=== PATIENT | male | born 1955 | race Caucasian/White ===

== ENCOUNTER → 2018-04-13 17:01 | Outpatient (CLI) | payer OTHER, SELFPAY ==
--- NOTE | 2018-04-13 17:30 | MRI_ITS ---
STUDY: MRI LUMBAR SPINE WITH AND WITHOUT CONTRAST REASON FOR EXAM: Male, 62 years old. Low back pain and left leg numbness TECHNIQUE: Standardized fat and water weighted pulse sequences were obtained in the sagittal and axial planes. 20 ml of Dotarem contrast material was administered for the contrast portion of the examination. COMPARISON: None FINDINGS: T12-L1: Normal endplates. Normal disc height, hydration and morphology. Normal bilateral facet joints. Normal central canal and bilateral lateral recesses. Normal bilateral intervertebral neural foramina. Normal lumbar lordosis. There is no substantial scoliosis. Normal conus medullaris that terminates at T12-L1 L1-2: Normal endplates. Normal disc height, hydration and morphology. Normal bilateral facet joints. Normal central canal and bilateral lateral recesses. Normal bilateral intervertebral neural foramina. L2-3: Grade 1 spondylolisthesis Normal endplates. Normal disc height, desiccation and minor bulging disc osteophyte complex with moderate size left posterolateral disc extrusion with superior migration of disc fragment.. Bilateral facet arthropathy and thickening of ligamenta flava. Mild narrowing of the central canal. Moderate right lateral recess and neural foraminal stenosis with more severe narrowing on the left L3-4: Degenerative endplate changes. Narrowed disc space with desiccation of the disc and minor bulging disc osteophyte complex with tiny central disc protrusion. Bilateral facet arthropathy.. Mild narrowing of the central canal. Moderate to severe bilateral recess and neural foraminal stenosis exaggerated by shortened pedicles L4-5: Narrowed disc space and minor osteophytic ridging.. Bilateral facet arthropathy.. Normal central canal . Moderate to severe bilateral recess and neuroforaminal stenosis. L5-S1: Normal endplates. Normal disc height, desiccation and minor annular bulge.. Bilateral facet arthropathy. Normal central canal. Moderate to severe bilateral recess and neuroforaminal stenosis Normal visualized sacral ala. Normal visualized paraspinous soft tissue structures. MRI/Spine Lumbar W/WO Contrast IMPRESSION: No evidence for acute fracture or subluxation. Moderate spondylosis and multilevel spinal stenosis secondary to disc disease and bony hypertrophy. Findings as above Electronically Signed: Marc Brewer MD at 20:56 EDT , Service support ,
[2018-04-19 10:50] LABS: CREATININE FINGERSTICK 0.75 mg/dL (0.70-1.30); EGFR FINGERSTICK > 60 mL/min (>60)
== END ==
PROVIDERS: Family Provider Internal Medicine Cardiovascular Disease; PCP Internal Medicine Cardiovascular Disease
DX: M54.17 Radiculopathy, lumbosacral region (principal); M54.5 Low back pain; M25.552 Pain in left hip; M51.36 Other intervertebral disc degeneration, lumbar region; M47.816 Spondylosis without myelopathy or radiculopathy, lumbar region
CPT/HCPCS: 72158